=== PATIENT | female | born 1950 | race Caucasian/White ===

== ENCOUNTER → 2017-03-31 | Outpatient (CLI) | payer OTHER ==
[~2017-03-31] MED LIST: CALC1TAB87 PO; CLON2TAB PO; FOSA70TA PO; METF500T PO; PAXI20TA PO; SIMV40TA PO
[2017-03-31 09:47] LABS: BLOOD GAS BASE EXCESS 8.4 mmol/L (-2-2); BLOOD GAS CARBOXYHEMOGLOBIN 1.4 % (0-4); BLOOD GAS HCO3 34 mmol/L (22-26); BLOOD GAS METHEMOGLOBIN 0.9 % (0-2); BLOOD GAS O2 HGB SATURATION 83 % (90-100); BLOOD GAS OXYGEN CONTENT 19.4 Vol % (12.0-20.0); BLOOD GAS PCO2 62 mmHG (38-42); BLOOD GAS PO2 52 mmHG (61-120); BLOOD GAS TOTAL HGB 16.7 G/DL (12.0-16.0); TEMP CORR TO 98.6
[2017-03-31 09:48] LABS: CRITICAL VALUE YES; DRAW SITE LT BRACHIAL; NUMBER OF ARTERIAL PUNCTURES 2; OXYGEN DEVICE RA; STAT NO; ULNAR PULSE Y
--- NOTE | 2017-04-10 09:18 | RSPPFT ---
DATE OF PROCEDURE: 03/31/17 COMMENTS: VOLUMES DYNAMIC: FVC and FEV1 severely reduced. STATIC: TLC and RV mildly reduced; FRC mildly increased. FLOWS: FEV1% and FEF 25-75 severely reduced. DIFFUSION: Moderately reduced. FLOW VOLUME LOOP: Pattern of variable intrathoracic airways obstruction. IMPRESSION: Severe obstructive ventilatory defect with a moderate reduction in diffusion and considerable improvement post-bronchodilator. No significant hyperinflation.
== END ==
LOC: PHRSP 07:31
PROVIDERS: ATTEND Internal Medicine
DX: J44.9 Chronic obstructive pulmonary disease, unspecified (principal)
CPT/HCPCS: 36600; 82805; 94060; 94620; 94726; 94729